=== PATIENT | male | born 1940 | race Caucasian/White ===

== ENCOUNTER 2019-07-09 | Emergency (ER) | payer BC ==
[2019-07-09] MEDS ORDERED: ASPIRIN CHEWABL81 MG PO (21:30)
[2019-07-09] MEDS ORDERED: NORVASC10 M1 PO (21:30)
[2019-07-09] MEDS ORDERED: CRESTOR5 MG PO (21:30)
[2019-07-09] MEDS ORDERED: TAMSULOSIN0.4 MG PO (21:31)
[2019-07-09] MEDS ORDERED: TORADOL PO (23:28)
[2019-07-09] MEDS ORDERED: ORPHENADRINE100 MG PO (23:28)
== END 2019-07-09 23:36 | disposition home or self-care (01) | DRG 556 ==
DX: M79.18 Myalgia, other site (principal); I10 Essential (primary) hypertension